=== PATIENT | female | born 1990 | race Caucasian/White ===

== ENCOUNTER 2017-07-05 06:41 | Day surgery (SDC) | payer OTHER ==
[~2017-07-05] VITALS: Ht 157.5 cm; Wt 78.5 kg
[2017-07-05 06:56] VITALS: BP 112/61
[2017-07-05 09:36] VITALS: BP 111/51
== END 2017-07-05 10:15 | disposition home or self-care (01) ==
LOC: DS 06:41 → GI 07:30 → DS 10:15
PROVIDERS: Internal Medicine Gastroenterology
PROC: 0DJD8ZZ Inspection of Lower Intestinal Tract, Via Natural or Artificial Opening Endoscopic (ICD-10-PCS; principal; 2017-07-05 07:30)
DX: K64.8 Other hemorrhoids (principal)
CPT/HCPCS: 45378; J1200; J1610; J2250; J2310; J3010; J3490

== ENCOUNTER 2017-08-17 10:11 | Emergency (ER) | payer OTHER ==
[2017-08-17 12:24] LABS: CALCIUM 8.6 mg/dL (8.5-10.1); CARBON DIOXIDE 29.3 mmol/L (21-32); CHLORIDE SERUM 102 mmol/L (98-107); CREATININE SERUM 0.7 mg/dL (0.6-1.0); GFR1 > 60 mL/min; GLUCOSE SERUM 82 mg/dL (74-106); POTASSIUM SERUM 3.5 mmol/L (3.5-5.1); SODIUM SERUM 133 mmol/L (136-145)
[2017-08-17 12:29] LABS: ALKALINE PHOSPHATASE 54 U/L (46-116); ALT/SGPT 16 U/L (14-59); AST/SGOT 13 U/L (15-37); BILIRUBIN TOTAL 0.35 mg/dL (0.20-1.00); TOTAL PROTEIN, SERUM 7.2 g/dL (6.4-8.2)
[2017-08-17 12:30] LABS: ALBUMIN 3.2 g/dL (3.4-5.0)
[2017-08-17 13:34] VITALS: BP 106/64
[2017-08-17 13:55] LABS: UA SPECIFIC GRAVITY <=1.005 (1.005-1.035); microscopic required? YES; urine erythrocyte 2+ (NEGATIVE)
== END 2017-08-17 13:34 | disposition home or self-care (01) ==
LOC: ED 10:11
PROVIDERS: Emergency Medicine Emergency Medical Services
DX: R10.13 Epigastric pain (principal); R11.2 Nausea with vomiting, unspecified; J45.909 Unspecified asthma, uncomplicated; Z88.8 Allergy status to other drugs, medicaments and biological substances
CPT/HCPCS: J2270; J2405; Q0092